=== PATIENT | female | born 1940 | race Two or more races ===

== ENCOUNTER 2023-08-06 05:55 | Inpatient (IN) | payer MEDICARE, MEDICAID ==
[~2023-08-06] VITALS: Ht 160 cm; Wt 55.3 kg
[2023-08-06 06:44] LABS: Basophils # (auto) 0 10 ^3/uL (0-0.2); Basophils % (auto) 0.4 % (0.0-2.0); Eosinophils # (auto) 0.8 10 ^3/uL (0-0.8); Eosinophils % (auto) 7.8 % (0.0-7.0); Hemoglobin 15.9 g/dL (12.2-16.2); Lymphocytes # (auto) 2.1 10 ^3/uL (0.4-5.4); Lymphocytes % (auto) 20.6 % (10.0-50.0); Mean Corpuscular Hemoglobin 27.2 pg (28.0-32.0); Mean Corpuscular Hgb Conc. 33.1 g/dL (32.0-36.0); Mean Corpuscular Volume 82.4 fL (80.0-100.0); Monocytes # (auto) 0.8 10 ^3/uL (0-1.3); Monocytes % (auto) 7.7 % (0.0-12.0); Neutrophils # (auto) 6.5 10 ^3/uL (1.6-8.6); Neutrophils % (auto) 63.5 % (37.0-80.0); Nucleated Red Blood Cells % 0.1 %; Red Blood Cells 5.82 10^6/uL (4.0-5.20); Red Cell Distribution Width 14.9 % (11.8-14.3); White Blood Cell 10.2 10^3/uL (4.4-10.8)
[2023-08-06 06:53] LABS: Alanine Aminotransferase 46 U/L (7-40); Albumin 4.7 g/dL (3.2-4.8); Alkaline Phosphatase 137 U/L (46-116); Anion Gap 9 (5-15); Aspartate Aminotransferase 55 U/L (13-40); BUN/Creatinine Ratio 20.5 (10.0-20.0); Blood Urea Nitrogen 25 mg/dL (9-23); Calcium 10.1 mg/dL (8.7-10.4); Carbon Dioxide 27 mmol/L (20-30); Chloride 99 mmol/L (98-107); Glucose 129 mg/dL (74-106); Magnesium 1.8 mg/dL (1.6-2.6); Potassium 3.1 mmol/L (3.5-5.1); Sodium 135 mmol/L (136-145)
[2023-08-06 06:54] LABS: Bilirubin, Total 0.4 mg/dL (0.2-1.0); INR 1.05 (0.9-1.15); Partial Thromboplastin Time 31.8 SEC (24.5-34.5); Total Protein 8.4 g/dL (5.7-8.2)
[2023-08-06] MEDS ORDERED: NITROGLYCERIN 0.2MG/HR TOPICAL PATCH TD ONE (09:00)
[2023-08-06] MEDS ORDERED: ACETAMINOPHEN 325 MG TAB PO ONE (09:00)
[2023-08-06] MEDS ORDERED: POTASSIUM CHL 20MEQ/100ML 100 ML IV ONE (09:00)
[2023-08-06] MEDS ORDERED: PANTOPRAZOLE 40 MG/10 ML VIAL INJ IV ONE (09:00)
[2023-08-06] MEDS ORDERED: ONDANSETRON HCL 4 MG/2 ML VIAL IV ONE (09:00)
[2023-08-06] MEDS ORDERED: ASPirin 81 mg TAB PO ONE (09:00)
[2023-08-06] MEDS ORDERED: ENOXAPARIN SOD 60 MG/0.6 ML SYRINGE SC ONE (09:30)
[2023-08-06] MEDS ORDERED: ACETAMINOPHEN 325 MG TAB PO PRN (09:30)
[2023-08-06] MEDS ORDERED: NITROGLYCERIN 0.4 MG SL TAB SL PRN (09:30)
[2023-08-06] MEDS ORDERED: POTASSIUM EFFERVESENT TAB 25 MEQ PO ONE ×2 (09:30)
[2023-08-06] MEDS ORDERED: SODIUM CHLORIDE 0.9% 1,000 ML IV SCH (09:30)
[2023-08-06] MEDS ORDERED: MORPHINE SULFATE INJ 2 MG/ml SYRG IV PRN (09:30)
[2023-08-06] MEDS ORDERED: DEXTROSE (50%) 50ML SYRG IV PRN (09:45)
[2023-08-06] MEDS ORDERED: ASPirin 81 mg TAB PO SCH (10:00)
[2023-08-06] MEDS: MAGNESIUM SULFATE 1GM/100ML 100 ML IV SCH ×2 (10:13→10:45)
[2023-08-06 10:56] LABS: Triglycerides 91 mg/dL (< 150)
[2023-08-06 10:57] LABS: LDL Cholesterol 72 mg/dL (< 100)
[2023-08-06 10:58] LABS: Cholesterol 122 mg/dL (< 200); HDL Cholesterol 37 mg/dL (40-59)
[2023-08-06 11:48] LABS: Hepatitis B Surface Antigen Negative (Negative)
[2023-08-06 12:08] LABS: Hepatitis A Ab IgM Negative
[2023-08-06 12:09] LABS: Hepatitis B Core IgM Negative; Hepatitis C Antibody Negative (Negative)
[2023-08-06] MEDS: InsuLIN REG 1unit/0.01ml Soln (100units/ml) SC SCH ×2 (12:15→17:00)
[2023-08-06] MEDS: ACCU-CHEK COMFORT CURVE STRIP VI SCH ×2 (12:15→17:27)
[2023-08-06] MEDS ORDERED: POTASSIUM CHL 20 Meq TABLET PO ONE (12:45)
[2023-08-06 16:02] LABS: Urine Bacteria NONE SEEN /hpf (None Seen); Urine Blood Negative /uL (Negative); Urine Clarity Clear (Clear); Urine Color Colorless (Yellow); Urine Protein, UAD Negative (Negative); Urine Specific Gravity 1.008 (1.001-1.035); Urine Urobilinogen Normal (Negative); Urine WBC <1 /hpf (0 - 5); Urine pH 7.5 (5.0-8.0)
[2023-08-06 17:00] VITALS: BP 110/49; PULSE 50; RESP 21; TEMP 97.8; O2SAT 92
[2023-08-07] MEDS ORDERED: ASPirin 81 mg TAB PO SCH (10:00)
[2023-08-07] MEDS ORDERED: ENOXAPARIN SOD 40 MG/0.4 ML SYRINGE SC SCH (10:00)
== END 2023-08-06 18:27 | disposition left against medical advice (07) | DRG 198 ==
LOC: EDBD 05:55 → ER 05:55 → TELE 09:31
PROVIDERS: ADMIT Nurse Practitioner Family; ATTEND Nurse Practitioner Family
DX: I24.9 Acute ischemic heart disease, unspecified (principal); N17.9 Acute kidney failure, unspecified; E11.9 Type 2 diabetes mellitus without complications; E78.5 Hyperlipidemia, unspecified; E83.42 Hypomagnesemia; E87.6 Hypokalemia; I10 Essential (primary) hypertension; I48.0 Paroxysmal atrial fibrillation; R00.1 Bradycardia, unspecified; R74.01 Elevation of levels of liver transaminase levels; Z53.29 Procedure and treatment not carried out because of patient's decision for other reasons; R74.8 Abnormal levels of other serum enzymes; R07.9 Chest pain, unspecified
CPT/HCPCS: 36415; 71045; 76705; 80053; 80061; 80074; 81001; 82962; 83036; 83735; 83880; 84439; 84443; 84484; 85025; 85379; 85610; 85730; 93005; 93306; 96374; 99291; C9113; G0378; J2405